=== PATIENT | female | born 1965 | race American Indian/Alaskan Native ===

== ENCOUNTER 2016-05-28 18:42 | Emergency (ER) | payer SELFPAY ==
[2016-05-28 19:02] VITALS: BP 133/95
[2016-05-28] MEDS ORDERED: NACL 0.9% 1000 ML 1,000 ML IV ONE (19:06)
[2016-05-28] MEDS ORDERED: ZOFRAN IV ONE (19:06)
[2016-05-28] MEDS ORDERED: XYLOCAINE 1% MPF 5 mL INFILTRATI ONE (19:09)
[2016-05-28] MEDS ORDERED: ROCEPHIN IV ONE (19:09)
--- NOTE | 2016-05-28 19:11 | Emergency Department Report ---
ED N/V/D HPI - General Chief complaint: Nausea/Vomiting/Diarrhea Stated complaint: COUGH/DIARRHEA/NOT EATING Source: patient Mode of arrival: Ambulatory Limitations: No Limitations - History of Present Illness MD complaint: nausea, vomiting, diarrhea Location: diffuse - Related Data Allergies Allergy/AdvReac Type Severity Reaction Status Date / Time No Known Allergies Allergy Unverified 05/28/16 18:57 ED Review of Systems ROS: Stated complaint: COUGH/DIARRHEA/NOT EATING Other details as noted in HPI ED Past Medical Hx - Past Medical History Previous Medical History?: Yes Hx Psychiatric Treatment: Yes (Bipolar) Hx HIV: Yes Additional medical history: Multiple myeloma - Surgical History Past Surgical History?: Yes Additional Surgical History: tubaligation - Social History Smoking Status: Former Smoker Substance Use Type: Prescribed ED Physical Exam - General Limitations: No Limitations ED Course Vital Signs 05/28/16 18:58 Temperature 98.8 F Pulse Rate 120 H Respiratory 24 Rate Blood Pressure 133/95 O2 Sat by Pulse 95 Oximetry Critical care attestation.: If time is entered above; I have spent that time in minutes in the direct care of this critically ill patient, excluding procedure time. ED Disposition Condition: Stable
--- NOTE | 2016-05-28 19:13 | Emergency Department Report ---
Chief Complaint: Nausea/Vomiting/Diarrhea Stated Complaint: COUGH/DIARRHEA/NOT EATING - HPI History of Present Illness: Plan nausea vomiting diarrhea and diffuse abdominal cramping for several days. Patient states she is unable to take her HIV meds due to this. - ROS Review of Systems: Patient awake alert and oriented afebrile nontoxic appearance tachycardic heart rate 120. - Exam Vital Signs: Vital Signs 05/28/16 18:58 Temperature 98.8 F Pulse Rate 120 H Respiratory 24 Rate Blood Pressure 133/95 O2 Sat by Pulse 95 Oximetry MSE screening note: Focused history and physical exam performed. Due to findings the following was ordered: ED Disposition for MSE Condition: Stable
[2016-05-28 20:04] LABS: Basophils % (Auto) 0.3 % (0.0-1.8); Eosinophils % (Auto) 0.1 % (0.0-4.3); Hematocrit 46.6 % (30.3-42.9); Hemoglobin 15.5 gm/dl (10.1-14.3); Mean Corpuscular HGB Conc 33 % (30-34); Mean Corpuscular Hemoglobin 33 pg (28-32); Mean Corpuscular Volume 99 fl (79-97); Platelet Count 131 K/mm3 (140-440); Red Blood Count 4.69 M/mm3 (3.65-5.03); Red Cell Distribution Width 14.3 % (13.2-15.2); White Blood Count 15.3 K/mm3 (4.5-11.0)
[2016-05-28 20:22] LABS: Alanine Aminotransferase 27 units/L (7-56); Albumin 4.2 g/dL (3.9-5); Albumin/Globulin Ratio 1.1 %; Alkaline Phosphatase 141 units/L (35-129); Anion Gap 19 mmol/L; Bilirubin,Total 0.5 mg/dL (0.1-1.2); Blood Urea Nitrogen 20 mg/dL (7-17); Calcium 9.1 mg/dL (8.4-10.2); Carbon Dioxide 24 mmol/L (22-30); Glucose 124 mg/dL (65-100); Lipase 41 units/L (13-60); Potassium 3.6 mmol/L (3.6-5.0); Sodium 137 mmol/L (137-145); Total Protein 8.1 g/dL (6.3-8.2)
--- NOTE | 2016-05-29 09:04 | XRay Report ---
CHEST 2 VIEWS INDICATION: Weakness. Chest pain and shortness of breath for 2-3 days. Patient states being diagnosed with multiple myeloma last year. COMPARISON: None similar at this institution. FINDINGS: PA and lateral chest radiographs demonstrate normal cardiomediastinal silhouette, mild aortic knob calcifications and well-expanded lungs. No significant pleural effusions or CHF. However, vague right mid to lower lung infiltrates may measure up to approximately 4.3 cm in size. A nonspecific 1 cm faint nodular density also projects about the left lateral costophrenic angle on the frontal view, not reliably localized on the lateral projection. Unremarkable bones. CONCLUSION: Subtle right mid to lower lung pneumonia and a vague 1 cm extreme left lung base nodular density that may be further evaluated on comparison with prior relevant imaging if available or further with chest CT, as warranted. Thank you for the opportunity to participate in this patient's care.
--- NOTE | 2016-06-01 01:29 | ED Elopement Review ---
ED Pt Elopement review - Results review Lab results: Laboratory Tests 05/28/16 05/28/16 05/28/16 19:35 19:35 19:35 WBC 15.3 H RBC 4.69 Hgb 15.5 H Hct 46.6 H MCV 99 H MCH 33 H MCHC 33 RDW 14.3 Plt Count 131 L Lymph % (Auto) 18.1 [place] % (Auto) 6.2 Eos % (Auto) 0.1 Baso % (Auto) 0.3 Lymph # 2.8 [place] # 0.9 H Eos # 0.0 Baso # 0.0 Seg Neutrophils % 75.3 H Seg Neutrophils # 11.5 H Sodium 137 Potassium 3.6 Chloride 98.0 Carbon Dioxide 24 Anion Gap 19 BUN 20 H Creatinine 1.0 Estimated GFR > 60 BUN/Creatinine Ratio 20.00 Glucose 124 H Lactic Acid 1.9 Calcium 9.1 Total Bilirubin 0.5 AST 32 ALT 27 Alkaline Phosphatase 141 H Total Protein 8.1 Albumin 4.2 Albumin/Globulin Ratio 1.1 Lipase 41 - Call Back decision Pt Call Back Decision: Call pt to return to ED [facility] (tachycardia, leukocytosis and subtle right lung pneumonia seen on chest x-ray should be addressed)
== END 2016-05-29 03:48 | disposition left against medical advice (07) ==
LOC: ED 18:42
DX: R19.7 Diarrhea, unspecified (principal); R10.84 Generalized abdominal pain; R11.2 Nausea with vomiting, unspecified; Z53.21 Procedure and treatment not carried out due to patient leaving prior to being seen by health care provider
CPT/HCPCS: 36415; 71020; 80053; 82140; 83690; 85025; 87040

== ENCOUNTER 2017-01-24 16:11 | Inpatient (IN) | payer OTHER ==
[2017-01-24] MEDS ORDERED: NACL 0.9% 500 ML 500 ML IV ONE (16:26)
[2017-01-24] MEDS ORDERED: ZOSYN/NS 4.5GM/100ML 4.5 GM/100 ML VIAL IV ONE (16:49)
[2017-01-24] MEDS ORDERED: NACL 0.9% 1000 ML 1,000 ML IV ONE ×3 (16:49→17:37)
[2017-01-24] MEDS ORDERED: TYLENOL PO ONE (16:49)
--- NOTE | 2017-01-24 16:54 | Emergency Department Report ---
ED General Adult HPI - General Chief complaint: Nausea/Vomiting/Diarrhea Stated complaint: N&V Time Seen by Provider: 01/24/17 16:44 Source: patient Mode of arrival: Ambulatory Limitations: No Limitations - History of Present Illness Initial comments: Patient is 51 years old female history of HIV, multiple myeloma on chemotherapy , presented with fever cough productive nausea and vomiting for the last 4 days patient looks very dry. Patient denied diarrhea. No chest pain or shortness of breath. No other symptoms at this moment. -: Gradual - Related Data Allergies Allergy/AdvReac Type Severity Reaction Status Date / Time No Known Allergies Allergy Verified 01/24/17 16:47 ED Review of Systems ROS: Stated complaint: N&V Other details as noted in HPI Comment: All other systems reviewed and negative Constitutional: no symptoms reported, chills, fever Respiratory: cough Cardiovascular: palpitations. denies: chest pain Gastrointestinal: nausea, vomiting. denies: hematemesis, melena, hematochezia Genitourinary: denies: urgency, dysuria, frequency, hematuria Neurological: weakness (generalized). denies: headache, numbness, paresthesias , confusion, abnormal gait ED Past Medical Hx - Past Medical History Previous Medical History?: Yes Hx Psychiatric Treatment: Yes (Bipolar) Hx HIV: Yes Additional medical history: Multiple myeloma - Surgical History Additional Surgical History: tubaligation - Social History Smoking Status: Current Every Day Smoker Substance Use Type: None ED Physical Exam - General Limitations: No Limitations General appearance: alert, in no apparent distress - Head Head exam: Present: atraumatic, normocephalic - Eye Eye exam: Present: normal appearance - ENT ENT exam: Present: mucous membranes dry - Neck Neck exam: Present: normal inspection, full ROM. Absent: tenderness, meningismus, lymphadenopathy, thyromegaly - Respiratory Respiratory exam: Present: rales, decreased breath sounds. Absent: respiratory distress, wheezes, rhonchi, stridor, prolonged expiratory - Cardiovascular Cardiovascular Exam: Present: tachycardia - GI/Abdominal GI/Abdominal exam: Present: soft, normal bowel sounds. Absent: tenderness, guarding, rebound, rigid, organomegaly, mass, bruit, pulsatile mass, hernia - Extremities Exam Extremities exam: Present: normal inspection, full ROM, normal capillary refill. Absent: tenderness, pedal edema, calf tenderness - Back Exam Back exam: Present: normal inspection. Absent: CVA tenderness (R), CVA tenderness (L) - Neurological Exam Neurological exam: Present: alert, oriented X3, CN II-XII intact - Skin Skin exam: Present: warm, dry, intact ED Course Vital Signs 01/24/17 01/24/17 01/24/17 16:22 16:50 18:32 Temperature 103 F H 100.8 F H Pulse Rate 117 H 113 H Respiratory 24 21 18 Rate Blood Pressure 125/88 Blood Pressure 137/85 [Left] O2 Sat by Pulse 94 97 Oximetry 01/24/17 01/24/17 01/24/17 18:34 18:46 19:00 Temperature Pulse Rate 108 H 109 H 120 H Respiratory 16 22 28 H Rate Blood Pressure Blood Pressure [Left] O2 Sat by Pulse 99 98 99 Oximetry 01/24/17 01/24/17 01/24/17 19:34 19:46 20:00 Temperature Pulse Rate 111 H 112 H 99 H Respiratory 19 14 Rate Blood Pressure 127/79 139/98 Blood Pressure [Left] O2 Sat by Pulse 100 100 99 Oximetry 01/24/17 01/24/17 20:15 20:30 Temperature 99.6 F Pulse Rate 104 H Respiratory 14 Rate Blood Pressure Blood Pressure [Left] O2 Sat by Pulse 98 Oximetry - Reevaluation(s) Reevaluation #1: 01/24/17 17:30 Patient stated that she is feeling better after fluids. Reevaluation #2: 01/24/17 21:[address] Spencer from [facility], he stated that this patient does not have a graft versus host disease because she had her own stem cell and need to be admitted into the hospital that she is in now. ED Medical Decision Making - Lab Data Result diagrams: 01/24/17 16:39 01/24/17 16:39 - Radiology Data Radiology results: image reviewed interpreted by me: Possible bilateral lower lobe early infiltrate Critical care attestation.: If time is entered above; I have spent that time in minutes in the direct care of this critically ill patient, excluding procedure time. ED Disposition Clinical Impression: Sepsis, Pneumonia, Nausea and vomiting Disposition: OP ADMIT IP TO THIS HOSP Is pt being admited?: Yes Condition: Stable Instructions: Bacterial Pneumonia (ED) Referrals: PRIMARY CARE, [Primary Care Provider] - 3-5 Days
[2017-01-24 17:13] LABS: Basophils % (Auto) 0.2 % (0.0-1.8); Eosinophils % (Auto) 0.5 % (0.0-4.3); Hematocrit 39.6 % (30.3-42.9); Hemoglobin 13.3 gm/dl (10.1-14.3); Mean Corpuscular HGB Conc 34 % (30-34); Mean Corpuscular Hemoglobin 36 pg (28-32); Mean Corpuscular Volume 107 fl (79-97); Platelet Count 149 K/mm3 (140-440); Red Blood Count 3.72 M/mm3 (3.65-5.03); Red Cell Distribution Width 13.9 % (13.2-15.2); White Blood Count 11.1 K/mm3 (4.5-11.0)
[2017-01-24 17:17] LABS: Alanine Aminotransferase 11 units/L (7-56); Albumin/Globulin Ratio 1.3 %; Alkaline Phosphatase 112 units/L (35-129); Anion Gap 21 mmol/L; BUN/Creatinine Ratio 17; Blood Urea Nitrogen 12 mg/dL (7-17); Calcium 8.7 mg/dL (8.4-10.2); Carbon Dioxide 24 mmol/L (22-30); Chloride 98.1 mmol/L (98-107); Glucose 125 mg/dL (65-100); Potassium 3.7 mmol/L (3.6-5.0); Sodium 139 mmol/L (137-145)
[2017-01-24 17:21] LABS: INR 0.98 (0.87-1.13)
[2017-01-24] MEDS ORDERED: ZOFRAN IV ONE (17:21)
--- NOTE | 2017-01-24 17:38 | History and Physical Report ---
History of Present Illness Chief complaint: Im sick, and i need help History of present illness: 51 YO Female with Multiple Myeloma Noncompliant with chemotherapy, S/P Bone Marrow Transplant with medication noncompliance, HIV, Bipolar, Nicotine Dependence, Medication Noncompliance due to inability to afford her medication presents to ED for evaluation. Pt states that she has experienced multiple episodes of nausea and vomiting for the past 4 days which has resulted in decreased oral intake. Pt states that she had a bone marrow transplant in October , but has not seen her oncologist in the past 2 months. Pt states that she presented to office for appointments, but was not allowed to see the physician. Pt acknowledges noncompliance with her chemotherapy medication, but compliance with HIV medication. Pt denies CP, Palpitations, Syncope, BRBPR, Recent ill contacts, leg swelling, calf pain, shortness of breath, loose stools, Vision changes, or recent ill contacts. . Pt seen and evaluated in ED and found to have fever of 103; However, repeat evaluation showed a temperature of 100.8. Pt treated with empiric antibiotic therapy, IV fluid, anti emetic therapy. Pt counseled regarding medication noncompliance. Pt informed of poor prognosis and the need for medication compliance, and outpatient f/u with oncology. Pt informed of care plan. Pt states that she does not have money for her medication , and has several prescriptions at home that she cannot get filled because she does not have money for her medication. Pt states that "somebody should be able to help me get my medicine". Pt acknowledges understanding prognosis and instructions. Pt care discussed in detail with ED physician. ED physician instructed to transfer patient to transplant center. per ED sofie, [facility] notified, and patient was discussed with Oncology physician class a regional truck driver. Oncology physician class a regional truck driver was the patient's outpatient oncologist. The oncologist states that patient does not require transfer, and should be treated with IV abx. and the patient will receive F/U care in the office at discharge. Past History Past Medical History: cancer, HIV/AIDS, other (Nicotine Dependence) Past Surgical History: Other (Bone Marrow transplant) Social history: single, smoking. denies: alcohol abuse, prescription drug abuse Family history: no significant family history (reviewed) Medications and Allergies Allergies Allergy/AdvReac Type Severity Reaction Status Date / Time No Known Allergies Allergy Verified 01/24/17 16:47 Active Meds: Active Medications Sodium Chloride (Nacl 0.9% 1000 Ml) 1,000 mls @ 999 mls/hr IV BOLUS ONE Stop: 01/24/17 17:49 Sodium Chloride (Nacl 0.9% 1000 Ml) 1,000 mls @ 999 mls/hr IV BOLUS ONE Stop: 01/24/17 17:55 Sodium Chloride (Nacl 0.9% 1000 Ml) 1,000 mls @ 999 mls/hr IV BOLUS ONE Stop: 01/24/17 18:37 Review of Systems Constitutional: fever, weakness, malaise, other, no weight loss, no weight gain , no chills Breasts: no change in shape, no swelling, no mass Cardiovascular: no chest pain, no orthopnea, no palpitations, no rapid/ irregular heart beat, no edema, no syncope Respiratory: no cough, no cough with sputum, no excessive sputum, no hemoptysis , no shortness of breath, no dyspnea on exertion Gastrointestinal: nausea, vomiting Genitourinary Female: no pelvic pain, no flank pain, no menorrhagia Musculoskeletal: no neck stiffness, no neck pain, no shooting arm pain, no arm numbness/tingling, no low back pain, no shooting leg pain Integumentary: no rash, no pruritis, no redness, no sores, no wounds Neurological: no transient paralysis, no paralysis, no weakness, no parathesias , no numbness Psychiatric: no anxiety, no memory loss, no change in sleep habits, no sleep disturbances, no insomnia Endocrine: no cold intolerance, no heat intolerance, no polyphagia, no excessive thirst, no polydipsia Hematologic/Lymphatic: no easy bruising, no easy bleeding Allergic/Immunologic: no urticaria, no allergic rhinitis, no wheezing Exam - Constitutional Vitals: Temp Pulse Resp BP Pulse Ox 100.8 F H 113 H 21 137/85 97 01/24/17 16:50 01/24/17 16:50 01/24/17 16:50 01/24/17 16:50 01/24/17 16:50 General appearance: Present: mild distress, cachectic, disheveled - EENT Eyes: Present: PERRL ENT: hearing intact, clear oral mucosa - Neck Neck: Present: supple, normal ROM - Respiratory Respiratory effort: normal Respiratory: bilateral: CTA - Cardiovascular Rhythm: other (tachycardia) Heart Sounds: Present: S1 & S2. Absent: rub, click - Extremities Extremities: pulses symmetrical, No edema Peripheral Pulses: within normal limits - Abdominal General gastrointestinal: Present: soft, non-tender, non-distended, normal bowel sounds Female genitourinary: Present: normal - Integumentary Integumentary: Present: clear, dry, decreased turgor - Musculoskeletal Musculoskeletal: generalized weakness - Psychiatric Psychiatric: appropriate mood/affect, intact judgment & insight - Neurologic Neurologic: CNII-XII intact, moves all extremities Results - Labs CBC & Chem 7: 01/24/17 16:39 01/24/17 16:39 Labs: Abnormal lab results 01/24/17 01/24/17 01/24/17 Range/Units 16:39 16:39 16:39 WBC 11.1 H (4.5-11.0) K/mm3 MCV 107 H (79-97) fl MCH 36 H (28-32) pg [place] % (Auto) 7.9 H (0.0-7.3) % [place] # 0.9 H (0.0-0.8) K/mm3 Seg Neutrophils % 75.5 H (40.0-70.0) % Seg Neutrophils # 8.4 H (1.8-7.7) K/mm3 VBG pH 7.456 H (7.320-7.420) Glucose 125 H (65-100) mg/dL Assessment and Plan - Patient Problems (1) Sepsis Current Visit: Yes Status: Acute Qualifiers: Sepsis type: sepsis due to unspecified organism Qualified Code(s): A41.9 - Sepsis, unspecified organism Plan to address problem: Sepsis Protocol: IV abx, IVF resuscitation, blood cultures, serial lactic acid level, monitor uop q shift, CTA chest to evaluate for intrathoracic anomoly/PE. (2) Nausea and vomiting Current Visit: Yes Status: Acute Plan to address problem: Anti emetic therapy, supportive care. (3) Multiple myeloma Current Visit: Yes Status: Acute Plan to address problem: Pt noncompliant with medication. Pt counseled. Pt states that she has not been seen by her oncologist and has prescriptions at home for all her medication, but cannot afford her medication. (4) Complication of bone marrow transplant Current Visit: Yes Status: Acute Plan to address problem: Pt noncompliant with medication, Pt symptoms may be the result noncompliance. recommend outpatient f/u with oncology. Pt treated with empiric antibiotic therapy, IVF and supportive care. (5) DVT prophylaxis Current Visit: Yes Status: Acute
[2017-01-24] MEDS ORDERED: VANCOMYCIN/NS 1 GM/250 ML 1 GM/250 ML BAG IV ONE (17:39)
[2017-01-24 19:56] LABS: Bacteria,Urine 1+ /HPF (Negative); Bilirubin,Urine NEG (Negative); Blood,Urine NEG (Negative); Ketones,Urine NEG (Negative); Leukocyte Esterase,Urine NEG (Negative); Nitrite,Urine NEG (Negative); Protein,Urine <15 mg/dL mg/dL (Negative); Urobilinogen,Urine < 2.0 mg/dL (<2.0)
[2017-01-24] MEDS ORDERED: NACL 0.9% 1000 ML IV ONE (21:25)
[2017-01-24] MEDS ORDERED: MILK OF MAGNESIA PO PRN (21:25)
[2017-01-24] MEDS ORDERED: ZOFRAN IV PRN (21:25)
[2017-01-24] MEDS ORDERED: DULCOLAX PR PRN (21:25)
[2017-01-24] MEDS ORDERED: TYLENOL PO PRN (21:25)
[2017-01-24] MEDS: ZOSYN/NS 4.5GM/100ML 4.5 GM/100 ML VIAL IV SCH (22:55)
[2017-01-25] MEDS: ZOSYN/NS 4.5GM/100ML 4.5 GM/100 ML VIAL IV SCH ×3 (05:45→21:54)
[2017-01-25] MEDS: NACL 0.9% 1000 ML 1,000 ML IV SCH (05:49)
--- NOTE | 2017-01-25 08:26 | XRay Report ---
AP chest: Fever, nonspecific pulmonary symptoms. The lungs are hyperinflated. The interstitial pattern may be minimally increased but there is no focal findings and no pleural abnormality identified. The heart and mediastinal structures are unremarkable. No vascular congestion. No significant change compared to prior study in May 2016. Impression: Hyperinflation with no acute finding.
[2017-01-25] MEDS ORDERED: NACL ONE (09:02)
--- NOTE | 2017-01-25 09:53 | Cat Scan Report ---
CTA of the chest: Chest pain with positive d-dimer. There is good opacification of the pulmonary vessels, cardiac chambers, and thoracic aorta. No filling defects identified in these opacified vessels or cardiac chambers. Normal aortic contour and size. No mediastinal or significant hilar adenopathy identified. The central airways are patent. There bronchoalveolar opacities in the right and left upper lobes as well as in the right lower lobe. In the left lower lobe there is a large consolidation. The thyroid lobe is generally enlarged and inhomogeneous but no focal mass is identified. Images carried into the upper abdomen show no pathology. Impressions: 1. No pulmonary embolus identified. 2. Bilateral pulmonary opacities consistent with pneumonia.
[2017-01-25] MEDS ORDERED: NORCO 5/325 PO PRN (15:08)
--- NOTE | 2017-01-25 15:09 | Progress Note ---
Assessment and Plan Assessment and plan: Patient is a 51-year-old woman with history of HIV, tobacco dependency and multiple myeloma who presented with severe shortness of breath. CTA of the chest reported as no pulmonary embolism but bilateral pneumonia. Patient gives a history of sick contact with her grandkids -Bilateral aspiration pneumonia: Continue IV vancomycin with close monitoring and IV Zosyn, follow cultures -Sepsis pneumonia present on admission as evidenced by respiration 21, temperature 100.8 and heart rate 113 -HIV: Currently in in transition to another infectious disease physician, consult ID -Multiple myeloma: Continue to follow with her oncologist at [facility] -DVT prophylaxis: Subcutaneous heparin added -Tobacco dependency: Counseled stopping History Interval history: Patient was seen and examined. Follow-up on current diagnosis/shortness of breath which is still present. Overnight uneventful. Patient denies any chest pain, or severe headaches. Imaging, nursing note, chart, labs and old chart reviewed. Discussed with patient. The nausea and vomiting has resolved she only on clear liquids. Hospitalist Physical - Physical exam Narrative exam: GEN: Thin woman, NAD, AWAKE, ALERT, ORIENTATED 3 HEENT: NCAT, EOMI, PERRL, OP Clear NECK: supple, no adenopathy, no thyromegaly, no JVD CVS/HEART: RRR, NORMAL S1S2, NO JVD, pulses present bilaterally CHEST/LUNGS: Coarse breath sounds with crackles worse on the left base Symmetrical chest expansion, diminished air entry bilaterally GI/Abdomen: soft, NTND, good bowel sounds, no guarding or rebound /Bladder: no suprapubic tenderness, no CVA or paraspinal tenderness EXT/Skin: no c/c/e, no obvious rash MSK: FROM x 4 Neuro: CN 2-12 grossly intact, no new focal deficits Psych: calm - Constitutional Vitals: Temp Pulse Resp BP Pulse Ox 98.5 F 85 18 145/89 99 01/25/17 07:28 01/25/17 07:28 01/25/17 07:28 01/25/17 07:28 01/25/17 07:28 General appearance: Present: cachectic Results - Labs CBC & Chem 7: 01/24/17 16:39 01/24/17 16:39 Labs: Laboratory Last Values WBC 11.1 K/mm3 (4.5-11.0) H 01/24/17 16:39 RBC 3.72 M/mm3 (3.65-5.03) 01/24/17 16:39 Hgb 13.3 gm/dl (10.1-14.3) 01/24/17 16:39 Hct 39.6 % (30.3-42.9) 01/24/17 16:39 MCV 107 fl (79-97) H 01/24/17 16:39 MCH 36 pg (28-32) H 01/24/17 16:39 MCHC 34 % (30-34) 01/24/17 16:39 RDW 13.9 % (13.2-15.2) 01/24/17 16:39 Plt Count 149 K/mm3 (140-440) 01/24/17 16:39 Lymph % (Auto) 15.9 % (13.4-35.0) 01/24/17 16:39 Jay % (Auto) 7.9 % (0.0-7.3) H 01/24/17 16:39 Eos % (Auto) 0.5 % (0.0-4.3) 01/24/17 16:39 Baso % (Auto) 0.2 % (0.0-1.8) 01/24/17 16:39 Lymph # 1.8 K/mm3 (1.2-5.4) 01/24/17 16:39 Jay # 0.9 K/mm3 (0.0-0.8) H 01/24/17 16:39 Eos # 0.1 K/mm3 (0.0-0.4) 01/24/17 16:39 Baso # 0.0 K/mm3 (0.0-0.1) 01/24/17 16:39 Seg Neutrophils % 75.5 % (40.0-70.0) H 01/24/17 16:39 Seg Neutrophils # 8.4 K/mm3 (1.8-7.7) H 01/24/17 16:39 PT 13.5 Sec. (12.2-14.9) 01/24/17 16:39 INR 0.98 (0.87-1.13) 01/24/17 16:39 D-Dimer 766.3 ng/mlDDU (0-234) H 01/24/17 16:39 VBG pH 7.456 (7.320-7.420) H 01/24/17 16:39 Sodium 139 mmol/L (137-145) 01/24/17 16:39 Potassium 3.7 mmol/L (3.6-5.0) 01/24/17 16:39 Chloride 98.1 mmol/L (98-107) 01/24/17 16:39 Carbon Dioxide 24 mmol/L (22-30) 01/24/17 16:39 Anion Gap 21 mmol/L 01/24/17 16:39 BUN 12 mg/dL (7-17) 01/24/17 16:39 Creatinine 0.7 mg/dL (0.7-1.2) 01/24/17 16:39 Estimated GFR > 60 ml/min 01/24/17 16:39 BUN/Creatinine Ratio 17 % 01/24/17 16:39 Glucose 125 mg/dL (65-100) H 01/24/17 16:39 Lactic Acid 1.00 mmol/L (0.7-2.0) 01/25/17 04:50 Calcium 8.7 mg/dL (8.4-10.2) 01/24/17 16:39 Total Bilirubin 0.40 mg/dL (0.1-1.2) 01/24/17 16:39 AST 17 units/L (5-40) 01/24/17 16:39 ALT 11 units/L (7-56) 01/24/17 16:39 Alkaline Phosphatase 112 units/L (35-129) 01/24/17 16:39 Total Protein 7.0 g/dL (6.3-8.2) 01/24/17 16:39 Albumin 4.0 g/dL (3.9-5) 01/24/17 16:39 Albumin/Globulin Ratio 1.3 % 01/24/17 16:39 Urine Color Yellow (Yellow) 01/24/17 19:38 Urine Turbidity Clear (Clear) 01/24/17 19:38 Urine pH 7.0 (5.0-7.0) 01/24/17 19:38 Ur Specific [place] 1.012 (1.003-1.030) 01/24/17 19:38 Urine Protein <15 mg/dl mg/dL (Negative) 01/24/17 19:38 Urine Glucose (UA) Neg mg/dL (Negative) 01/24/17 19:38 Urine Ketones Neg mg/dL (Negative) 01/24/17 19:38 Urine Blood Neg (Negative) 01/24/17 19:38 Urine Nitrite Neg (Negative) 01/24/17 19:38 Urine Bilirubin Neg (Negative) 01/24/17 19:38 Urine Urobilinogen < 2.0 mg/dL (<2.0) 01/24/17 19:38 Ur Leukocyte Esterase Neg (Negative) 01/24/17 19:38 Urine WBC (Auto) 1.0 /HPF (0.0-6.0) 01/24/17 19:38 Urine RBC (Auto) 5.0 /HPF (0.0-6.0) 01/24/17 19:38 U Epithel Cells (Auto) 5.0 /HPF (0-13.0) 01/24/17 19:38 Urine Bacteria (Auto) 1+ /HPF (Negative) 01/24/17 19:38
[2017-01-25] MEDS ORDERED: REGLAN IV PRN (15:10)
[2017-01-25] MEDS: MORPHINE IV PRN ×2 (17:52→21:55)
[2017-01-25] MEDS: ROBITUSSIN PO PRN (21:53)
[2017-01-26] MEDS: ROBITUSSIN PO PRN ×3 (01:32→20:34)
[2017-01-26] MEDS: NACL 0.9% 1000 ML 1,000 ML IV SCH ×2 (04:12→20:33)
[2017-01-26] MEDS: ZOSYN/NS 4.5GM/100ML 4.5 GM/100 ML VIAL IV SCH (05:19)
[2017-01-26] MEDS ORDERED: ZOVIRAX PO SCH (10:00)
[2017-01-26] MEDS ORDERED: TRIUMEQ PO SCH (10:00)
[2017-01-26] MEDS: ZOVIRAX PO SCH (10:07)
[2017-01-26] MEDS: PROTONIX PO SCH (10:07)
--- NOTE | 2017-01-26 11:20 | Progress Note ---
Assessment and Plan Assessment and plan: Patient is a 51-year-old woman with history of HIV, tobacco dependency and multiple myeloma who presented with severe shortness of breath. CTA of the chest reported as no pulmonary embolism but bilateral pneumonia. Patient gives a history of sick contact with her grandkids -Bilateral aspiration pneumonia: Continue IV vancomycin with close monitoring and IV Zosyn, follow cultures -Sepsis pneumonia present on admission as evidenced by respiration 21, temperature 100.8 and heart rate 113: treat with abx -HIV: Currently in transition to another infectious disease physician, consult ID -Multiple myeloma: Continue to follow with her oncologist at [facility] -DVT prophylaxis: Subcutaneous heparin added -Tobacco dependency: Counseled stopping hopefully d/c in 1-2 days History Interval history: Patient was seen and examined. Follow-up on current diagnosis/shortness of breath which is still present. Overnight uneventful. Patient denies any chest pain, or severe headaches. Imaging, nursing note, chart, labs and old chart reviewed. Discussed with patient. The nausea and vomiting has resolved she only on clear liquids. Hospitalist Physical - Physical exam Narrative exam: GEN: Thin woman, NAD, AWAKE, ALERT, ORIENTATED 3 HEENT: NCAT, EOMI, PERRL, OP Clear NECK: supple, no adenopathy, no thyromegaly, no JVD CVS/HEART: RRR, NORMAL S1S2, NO JVD, pulses present bilaterally CHEST/LUNGS: Coarse breath sounds with crackles worse on the left base Symmetrical chest expansion, diminished air entry bilaterally GI/Abdomen: soft, NTND, good bowel sounds, no guarding or rebound /Bladder: no suprapubic tenderness, no CVA or paraspinal tenderness EXT/Skin: no c/c/e, no obvious rash MSK: FROM x 4 Neuro: CN 2-12 grossly intact, no new focal deficits Psych: calm - Constitutional Vitals: Temp Pulse Resp BP Pulse Ox 98.3 F 73 16 165/94 96 01/26/17 08:24 01/26/17 08:24 01/26/17 08:24 01/26/17 08:24 01/26/17 08:24 General appearance: Present: cachectic Results - Labs CBC & Chem 7: 01/24/17 16:39 01/24/17 16:39 Labs: Laboratory Last Values WBC 11.1 K/mm3 (4.5-11.0) H 01/24/17 16:39 RBC 3.72 M/mm3 (3.65-5.03) 01/24/17 16:39 Hgb 13.3 gm/dl (10.1-14.3) 01/24/17 16:39 Hct 39.6 % (30.3-42.9) 01/24/17 16:39 MCV 107 fl (79-97) H 01/24/17 16:39 MCH 36 pg (28-32) H 01/24/17 16:39 MCHC 34 % (30-34) 01/24/17 16:39 RDW 13.9 % (13.2-15.2) 01/24/17 16:39 Plt Count 149 K/mm3 (140-440) 01/24/17 16:39 Lymph % (Auto) 15.9 % (13.4-35.0) 01/24/17 16:39 [place] % (Auto) 7.9 % (0.0-7.3) H 01/24/17 16:39 Eos % (Auto) 0.5 % (0.0-4.3) 01/24/17 16:39 Baso % (Auto) 0.2 % (0.0-1.8) 01/24/17 16:39 Lymph # 1.8 K/mm3 (1.2-5.4) 01/24/17 16:39 [place] # 0.9 K/mm3 (0.0-0.8) H 01/24/17 16:39 Eos # 0.1 K/mm3 (0.0-0.4) 01/24/17 16:39 Baso # 0.0 K/mm3 (0.0-0.1) 01/24/17 16:39 Seg Neutrophils % 75.5 % (40.0-70.0) H 01/24/17 16:39 Seg Neutrophils # 8.4 K/mm3 (1.8-7.7) H 01/24/17 16:39 PT 13.5 Sec. (12.2-14.9) 01/24/17 16:39 INR 0.98 (0.87-1.13) 01/24/17 16:39 D-Dimer 766.3 ng/mlDDU (0-234) H 01/24/17 16:39 VBG pH 7.456 (7.320-7.420) H 01/24/17 16:39 Sodium 139 mmol/L (137-145) 01/24/17 16:39 Potassium 3.7 mmol/L (3.6-5.0) 01/24/17 16:39 Chloride 98.1 mmol/L (98-107) 01/24/17 16:39 Carbon Dioxide 24 mmol/L (22-30) 01/24/17 16:39 Anion Gap 21 mmol/L 01/24/17 16:39 BUN 12 mg/dL (7-17) 01/24/17 16:39 Creatinine 0.7 mg/dL (0.7-1.2) 01/24/17 16:39 Estimated GFR > 60 ml/min 01/24/17 16:39 BUN/Creatinine Ratio 17 % 01/24/17 16:39 Glucose 125 mg/dL (65-100) H 01/24/17 16:39 Lactic Acid 1.00 mmol/L (0.7-2.0) 01/25/17 04:50 Calcium 8.7 mg/dL (8.4-10.2) 01/24/17 16:39 Total Bilirubin 0.40 mg/dL (0.1-1.2) 01/24/17 16:39 AST 17 units/L (5-40) 01/24/17 16:39 ALT 11 units/L (7-56) 01/24/17 16:39 Alkaline Phosphatase 112 units/L (35-129) 01/24/17 16:39 Total Protein 7.0 g/dL (6.3-8.2) 01/24/17 16:39 Albumin 4.0 g/dL (3.9-5) 01/24/17 16:39 Albumin/Globulin Ratio 1.3 % 01/24/17 16:39 Urine Color Yellow (Yellow) 01/24/17 19:38 Urine Turbidity Clear (Clear) 01/24/17 19:38 Urine pH 7.0 (5.0-7.0) 01/24/17 19:38 Ur Specific [place] 1.012 (1.003-1.030) 01/24/17 19:38 Urine Protein <15 mg/dl mg/dL (Negative) 01/24/17 19:38 Urine Glucose (UA) Neg mg/dL (Negative) 01/24/17 19:38 Urine Ketones Neg mg/dL (Negative) 01/24/17 19:38 Urine Blood Neg (Negative) 01/24/17 19:38 Urine Nitrite Neg (Negative) 01/24/17 19:38 Urine Bilirubin Neg (Negative) 01/24/17 19:38 Urine Urobilinogen < 2.0 mg/dL (<2.0) 01/24/17 19:38 Ur Leukocyte Esterase Neg (Negative) 01/24/17 19:38 Urine WBC (Auto) 1.0 /HPF (0.0-6.0) 01/24/17 19:38 Urine RBC (Auto) 5.0 /HPF (0.0-6.0) 01/24/17 19:38 U Epithel Cells (Auto) 5.0 /HPF (0-13.0) 01/24/17 19:38 Urine Bacteria (Auto) 1+ /HPF (Negative) 01/24/17 19:38
--- NOTE | 2017-01-26 11:51 | Consultation ---
History of Present Illness - Reason for Consult Consult date: 01/26/17 sepsis Requesting physician: ADEOLA THORNE - History of Present Illness 51 years old female with history of HIV since 1990 currently on Triumeq, sees Dr Michaud and Multiple Myeloma S/P Bone Marrow Transplant in October 2015, Bipolar, Nicotine Dependence; admitted on 01/24 17 due to one-week history of sore throat, runny nose, cough with white sputum production and subjective fever. Patient reports she was exposed to her grandchildren who had a upper respiratory infection 2 weeks ago. She lost oncology follow-up due to lack of insurance. She was supposed to take further chemotherapy however she has not been able to afford this. She also reports nausea and vomiting. Denies chest pain. In the emergency room, her initial temperature was 103, heart rate 117, respirations 22, blood pressure 125/88. Initial white count 11.1. Hemoglobin 13.3. Platelets 149. Creatinine 0.7. Lactic acid 3.2. Urinalysis was negative. Chest x-ray showed hyperinflation without consolidations. CTA showed no PE with bilateral pulmonary opacities. Current Antimicrobials: Zosyn 01/24 Previous Antimicrobials: Microbiology: Blood cultures: 01/24 ngtd Urine cultures: 01/24 neg Respiratory cultures: Influenza 01/24 neg Past History Past Medical History: cancer, HIV/AIDS, other (Nicotine Dependence) Past Surgical History: Other (Bone Marrow transplant) Social history: single, smoking. denies: alcohol abuse, prescription drug abuse Family history: no significant family history (reviewed) Medications and Allergies Allergies Allergy/AdvReac Type Severity Reaction Status Date / Time No Known Allergies Allergy Verified 01/24/17 16:47 Home Medications Medication Instructions Recorded Confirmed Last Taken Type Abacavir/Dolutegravir/Lamivudi 1 tab PO DAILY 01/25/17 01/25/17 Unknown History [Triumeq Tablet] Acyclovir [Zovirax Tab] 800 mg PO DAILY 01/25/17 01/25/17 Unknown History Active Meds: Active Medications Acetaminophen (Tylenol) 650 mg PO Q4H PRN PRN Reason: Pain MILD(1-3)/Fever >100.5/LAM Acetaminophen/Hydrocodone Bitart ([place]ane 5/325) 1 each PO Q4H PRN PRN Reason: Pain, Moderate (4-6) Acyclovir (Zovirax) 800 mg PO DAILY [facility] Last Admin: 01/26/17 10:07 Dose: 800 mg Bisacodyl (Dulcolax) 10 mg [place] QDAY PRN PRN Reason: Constipation unrelieved by [facility] Guaifenesin (Robitussin) 200 mg PO Q4H PRN PRN Reason: Cough Last Admin: 01/26/17 01:32 Dose: 200 mg Heparin Sodium (Porcine) (Heparin) 5,000 unit SUB-Q Q8H [facility] Sodium Chloride (Nacl 0.9% 1000 Ml) 1,000 mls @ 100 mls/hr IV DIRECT [facility] Last Admin: 01/26/17 04:12 Dose: 100 mls/hr Piperacillin Sod/Tazobactam Sod (Zosyn/Ns 4.5gm/100ml) 4.5 gm in 100 mls @ 200 mls/hr IV Q8HR RICH PRN Reason: Protocol Last Admin: 01/26/17 05:19 Dose: 200 mls/hr Magnesium Hydroxide (Milk Of Magnesia) 30 ml PO Q4H PRN PRN Reason: Constipation Metoclopramide HCl (Reglan) 10 mg IV Q8H PRN PRN Reason: Nausea And Vomiting Miscellaneous Medication (Triumeq) 1 tab PO DAILY [facility] Morphine Sulfate (Morphine) 2 mg IV Q4H PRN PRN Reason: Pain , Severe (7-10) Last Admin: 01/25/17 21:55 Dose: 2 mg Ondansetron HCl (Zofran) 4 mg IV Q8H PRN PRN Reason: N/V unrelieved by Reglan Pantoprazole Sodium (Protonix) 40 mg PO QDAY [facility] Last Admin: 01/26/17 10:07 Dose: 40 mg Review of Systems All systems: negative (as per HPI rest neg) Physical Examination - Physical Exam Narrative exam: General appearance: Alert in NAD, conversant Eyes: anicteric sclerae, moist conjunctivae; no lid-lag; PERRLA HENT: Atraumatic; oropharynx clear with moist mucous membranes and no mucosal ulcerations/no oral thrush; normal hard and soft palate. Normal external ears. Neck: Trachea midline; supple, no thyromegaly or lymphadenopathy Lungs: scattered rhonchi CV: rrr Abdomen: Soft, non-tender; no masses or hepatosplenomegaly Extremities: No peripheral edema or extremity lymphadenopathy Skin: Normal temperature, turgor and texture; no rash, ulcers or subcutaneous nodules Psych: Appropriate affect, alert and oriented to person, place and time. Neuro: alert and oriented x 3. Moving all extermities Lines: No CVL / PICC - Constitutional Vitals: Vital Signs Temp Pulse Resp BP Pulse Ox 98.3 F 73 16 165/94 96 01/26/17 08:24 01/26/17 08:24 01/26/17 08:24 01/26/17 08:24 01/26/17 08:24 Temperature -Last 24 Hours Temperature 98.3 F Temperature 98.9 F Temperature 98.2 F Results - Labs CBC & Chem 7: 01/24/17 16:39 01/24/17 16:39 Assessment and Plan Assessment: 1) Sepsis: Present on admission, manifested by fever, tachycardia, leukocytosis , increased lactate. Etiology most likely bilateral pneumonia. 2) Bilateral pneumonia: CAP versus oportunistic less likely -Chest x-ray showed hyperinflation without consolidations. -CTA showed no PE with bilateral pulmonary opacities. 3) HIV: since 1990 currently on Triumeq sees Dr Michaud 4) MM: s/p Bone Marrow Transplant in October 2015 5) Bipolar 6) Nicotine Dependence Plan: -follow-up blood cultures, urine culture -obtain respiratory cultures, procalcitonin, C-reactive protein (CRP) -check Legionella urine antigen, Streptococcus pneumoniae urine antigen -check Aspergillus antigen, Cryptococcal serum antigen -request HIV clinic records -continue triumeq -stop zosyn -start ceftriaxone and azithromycin -monitor fever Thank you Dr Thorne for your consultation, will follow up with you. Margaret David MD Infectious Diseases Specialist [facility] ([facility]) M [phone] O [phone]
[2017-01-26] MEDS: MORPHINE IV PRN ×2 (12:37→20:34)
[2017-01-26] MEDS: HEPARIN SUB-Q SCH (15:14)
[2017-01-26] MEDS: cefTRIAXone 2 GM in NACL 0.9% 20 ML IV SCH (15:15)
[2017-01-26] MEDS: ZITHROMAX 500 MG in NACL 0.9% 250ML 250 ML IV SCH (15:15)
[2017-01-27] MEDS: HEPARIN SUB-Q SCH ×3 (00:49→15:02)
[2017-01-27] MEDS: NACL 0.9% 1000 ML 1,000 ML IV SCH (07:05)
--- NOTE | 2017-01-27 08:36 | Progress Note ---
Assessment and Plan Assessment and plan: Patient is a 51-year-old woman with history of HIV, tobacco dependency and multiple myeloma who presented with severe shortness of breath. CTA of the chest reported as no pulmonary embolism but bilateral pneumonia. Patient gives a history of sick contact with her grandkids -Bilateral aspiration pneumonia: Continue IV vancomycin with close monitoring and IV Zosyn, follow cultures -Sepsis pneumonia present on admission as evidenced by respiration 21, temperature 100.8 and heart rate 113: treat with abx -HIV: Currently in transition to another infectious disease physician, consult ID -Multiple myeloma: Continue to follow with her oncologist at [place] -DVT prophylaxis: Subcutaneous heparin added -Tobacco dependency: Counseled stopping hopefully d/c in 1-2 days History Interval history: Patient was seen and examined. Follow-up on current diagnosis/shortness of breath which is still present. Overnight uneventful. Patient denies any chest pain, or severe headaches. Imaging, nursing note, chart, labs and old chart reviewed. Discussed with patient. The nausea and vomiting has resolved she only on clear liquids. Hospitalist Physical - Physical exam Narrative exam: GEN: Thin woman, NAD, AWAKE, ALERT, ORIENTATED 3 HEENT: NCAT, EOMI, PERRL, OP Clear NECK: supple, no adenopathy, no thyromegaly, no JVD CVS/HEART: RRR, NORMAL S1S2, NO JVD, pulses present bilaterally CHEST/LUNGS: Coarse breath sounds with crackles worse on the left base Symmetrical chest expansion, diminished air entry bilaterally GI/Abdomen: soft, NTND, good bowel sounds, no guarding or rebound /Bladder: no suprapubic tenderness, no CVA or paraspinal tenderness EXT/Skin: no c/c/e, no obvious rash MSK: FROM x 4 Neuro: CN 2-12 grossly intact, no new focal deficits Psych: calm - Constitutional Vitals: Temp Pulse Resp BP Pulse Ox 98.5 F 71 18 138/83 98 01/26/17 23:26 01/26/17 23:26 01/26/17 23:26 01/26/17 23:26 01/26/17 23:26 General appearance: Present: cachectic Results - Labs CBC & Chem 7: 01/24/17 16:39 01/24/17 16:39 Labs: Laboratory Last Values WBC 11.1 K/mm3 (4.5-11.0) H 01/24/17 16:39 RBC 3.72 M/mm3 (3.65-5.03) 01/24/17 16:39 Hgb 13.3 gm/dl (10.1-14.3) 01/24/17 16:39 Hct 39.6 % (30.3-42.9) 01/24/17 16:39 MCV 107 fl (79-97) H 01/24/17 16:39 MCH 36 pg (28-32) H 01/24/17 16:39 MCHC 34 % (30-34) 01/24/17 16:39 RDW 13.9 % (13.2-15.2) 01/24/17 16:39 Plt Count 149 K/mm3 (140-440) 01/24/17 16:39 Lymph % (Auto) 15.9 % (13.4-35.0) 01/24/17 16:39 [place] % (Auto) 7.9 % (0.0-7.3) H 01/24/17 16:39 Eos % (Auto) 0.5 % (0.0-4.3) 01/24/17 16:39 Baso % (Auto) 0.2 % (0.0-1.8) 01/24/17 16:39 Lymph # 1.8 K/mm3 (1.2-5.4) 01/24/17 16:39 Price # 0.9 K/mm3 (0.0-0.8) H 01/24/17 16:39 Eos # 0.1 K/mm3 (0.0-0.4) 01/24/17 16:39 Baso # 0.0 K/mm3 (0.0-0.1) 01/24/17 16:39 Seg Neutrophils % 75.5 % (40.0-70.0) H 01/24/17 16:39 Seg Neutrophils # 8.4 K/mm3 (1.8-7.7) H 01/24/17 16:39 PT 13.5 Sec. (12.2-14.9) 01/24/17 16:39 INR 0.98 (0.87-1.13) 01/24/17 16:39 D-Dimer 766.3 ng/mlDDU (0-234) H 01/24/17 16:39 VBG pH 7.456 (7.320-7.420) H 01/24/17 16:39 Sodium 139 mmol/L (137-145) 01/24/17 16:39 Potassium 3.7 mmol/L (3.6-5.0) 01/24/17 16:39 Chloride 98.1 mmol/L (98-107) 01/24/17 16:39 Carbon Dioxide 24 mmol/L (22-30) 01/24/17 16:39 Anion Gap 21 mmol/L 01/24/17 16:39 BUN 12 mg/dL (7-17) 01/24/17 16:39 Creatinine 0.7 mg/dL (0.7-1.2) 01/24/17 16:39 Estimated GFR > 60 ml/min 01/24/17 16:39 BUN/Creatinine Ratio 17 % 01/24/17 16:39 Glucose 125 mg/dL (65-100) H 01/24/17 16:39 Lactic Acid 1.00 mmol/L (0.7-2.0) 01/25/17 04:50 Calcium 8.7 mg/dL (8.4-10.2) 01/24/17 16:39 Total Bilirubin 0.40 mg/dL (0.1-1.2) 01/24/17 16:39 AST 17 units/L (5-40) 01/24/17 16:39 ALT 11 units/L (7-56) 01/24/17 16:39 Alkaline Phosphatase 112 units/L (35-129) 01/24/17 16:39 C-Reactive Protein 15.60 mg/dL (0.00-1.30) H 01/26/17 13:45 Total Protein 7.0 g/dL (6.3-8.2) 01/24/17 16:39 Albumin 4.0 g/dL (3.9-5) 01/24/17 16:39 Albumin/Globulin Ratio 1.3 % 01/24/17 16:39 Urine Color Yellow (Yellow) 01/24/17 19:38 Urine Turbidity Clear (Clear) 01/24/17 19:38 Urine pH 7.0 (5.0-7.0) 01/24/17 19:38 Ur Specific [place] 1.012 (1.003-1.030) 01/24/17 19:38 Urine Protein <15 mg/dl mg/dL (Negative) 01/24/17 19:38 Urine Glucose (UA) Neg mg/dL (Negative) 01/24/17 19:38 Urine Ketones Neg mg/dL (Negative) 01/24/17 19:38 Urine Blood Neg (Negative) 01/24/17 19:38 Urine Nitrite Neg (Negative) 01/24/17 19:38 Urine Bilirubin Neg (Negative) 01/24/17 19:38 Urine Urobilinogen < 2.0 mg/dL (<2.0) 01/24/17 19:38 Ur Leukocyte Esterase Neg (Negative) 01/24/17 19:38 Urine WBC (Auto) 1.0 /HPF (0.0-6.0) 01/24/17 19:38 Urine RBC (Auto) 5.0 /HPF (0.0-6.0) 01/24/17 19:38 U Epithel Cells (Auto) 5.0 /HPF (0-13.0) 01/24/17 19:38 Urine Bacteria (Auto) 1+ /HPF (Negative) 01/24/17 19:38
[2017-01-27] MEDS: MORPHINE IV PRN (09:52)
[2017-01-27] MEDS: ZOVIRAX PO SCH (09:53)
[2017-01-27] MEDS: PROTONIX PO SCH (09:53)
[2017-01-27] MEDS: ROBITUSSIN PO PRN (09:53)
[2017-01-27] MEDS ORDERED: ROCEPHIN/NS 2 GM/100 ML 2 GM/100 ML BAG IV SCH (10:00)
[2017-01-27] MEDS: ZITHROMAX 500 MG in NACL 0.9% 250ML 250 ML IV SCH (13:42)
[2017-01-27] MEDS: cefTRIAXone 2 GM in NACL 0.9% 20 ML IV SCH (14:00)
--- NOTE | 2017-01-27 16:24 | Progress Note ---
Assessment and Plan Assessment: 1) Sepsis: resolved. Etiology most likely bilateral pneumonia. CRP=15. 2) Bilateral pneumonia: likely CAP versus opportunistic less likely -Chest x-ray showed hyperinflation without consolidations. -CTA showed no PE with bilateral pulmonary opacities. 3) HIV: since 1990 currently on Triumeq sees Dr Michaud 4) MM: s/p Bone Marrow Transplant in October 2015 5) Bipolar 6) Nicotine Dependence Plan: -follow-up respiratory cultures, procalcitonin, Legionella urine antigen, Streptococcus pneumoniae urine antigen -continue triumeq -continue ceftriaxone and azithromycin -monitor fever -if continues to improve, ok to d/c home on levaquin 750 mg po qday for total 7 days from 01/24-01/30 and HIV clinic f/u in 1 week I am signing off Thank you Dr Arcos for your consultation, will follow up with you. Margaret David MD Infectious Diseases Specialist [facility] ([facility]) M [phone] O [phone] Subjective Date of service: 01/27/17 Principal diagnosis: pneumonia/HIV Interval history: Feels better, no fever. cough is better. Current Antimicrobials: Zosyn 01/24 Previous Antimicrobials: Microbiology: Blood cultures: 01/24 ngtd Urine cultures: 01/24 neg Respiratory cultures: Influenza 01/24 neg Objective - Exam Narrative Exam: General appearance: Alert in NAD, conversant Eyes: anicteric sclerae, moist conjunctivae; no lid-lag; PERRLA HENT: Atraumatic; oropharynx clear Neck: Trachea midline; supple, no thyromegaly or lymphadenopathy Lungs: CTA danelle CV: rrr Abdomen: Soft, non-tender; no masses or hepatosplenomegaly Extremities: No peripheral edema or extremity lymphadenopathy Skin: Normal temperature, turgor and texture; no rash, ulcers or subcutaneous nodules Psych: Appropriate affect, alert and oriented to person, place and time. Neuro: alert and oriented x 3. Moving all extermities Lines: No CVL / PICC - Constitutional Vitals: Vital Signs Temp Pulse Resp BP Pulse Ox 97.4 F L 64 18 154/87 100 01/27/17 12:10 01/27/17 12:10 01/27/17 12:10 01/27/17 12:10 01/27/17 12:10 Temperature -Last 24 Hours Temperature 97.4 F Temperature 97.9 F Temperature 98.5 F Temperature 98.7 F - Labs CBC & Chem 7: 01/24/17 16:39 01/24/17 16:39 Labs: Abnormal lab results 01/26/17 Range/Units 13:45 C-Reactive Protein 15.60 H (0.00-1.30) mg/dL
[2017-01-28] MEDS: HEPARIN SUB-Q SCH ×2 (00:04→08:25)
[2017-01-28] MEDS: ROBITUSSIN PO PRN (00:13)
[2017-01-28 08:23] VITALS: BP 174/97
[2017-01-28] MEDS: MORPHINE IV PRN (08:24)
[2017-01-28] MEDS: PROTONIX PO SCH (09:36)
[2017-01-28] MEDS: ZOVIRAX PO SCH (09:40)
[2017-01-28] MEDS ORDERED: ZITHROMAX PO SCH (10:00)
--- NOTE | 2017-01-28 11:16 | Discharge Summary ---
Providers - Providers Date of Admission: 01/24/17 21:45 Date of discharge: 01/28/17 Attending physician: ADEOLA THORNE 01/25/17 15:09 Consult to Physician [CONS] Routine Consulting Provider: CARMEN VALENTIN Reason For Exam: HIV Place consult to:: DR. VICENTE Notified:: DR. VICENTE Phone number called:: [phone] Was contact made?: Yes If yes, spoke with:: DR. VICENTE Time called:: 16:22 Comment:: HARRISON NOTIFIED Primary care physician: APPLICATIONS PROGRAMMER Hospitalization Condition: Stable Hospital course: Assessment and plan: Patient is a 51-year-old woman with history of HIV, tobacco dependency and multiple myeloma who presented with severe shortness of breath. CTA of the chest reported as no pulmonary embolism but bilateral pneumonia. Patient gives a history of sick contact with her grandkids -Bilateral aspiration pneumonia: Continue IV vancomycin with close monitoring and IV Zosyn, follow cultures -Sepsis pneumonia present on admission as evidenced by respiration 21, temperature 100.8 and heart rate 113: treat with abx -HIV: Currently in transition to another infectious disease physician, consult ID -Multiple myeloma: Continue to follow with her oncologist at [place] -DVT prophylaxis: Subcutaneous heparin added -Tobacco dependency: Counseled stopping Disposition: DC-01 TO HOME OR SELFCARE Time spent for discharge: 34 minutes Core Measure Documentation - Palliative Care Palliative Care/ Comfort Measures: Not Applicable - Core Measures Any of the following diagnoses?: none - VTE Discharge Requirements Deep Vein Thrombosis/Pulmonary Embolism Present on Admission: No Has pt received <5 days of overlap therapy or INR<2.0: No Anticoagulant overlap therapy prescribed at discharge: No Contraindication No Overlap Therapy order at DC: Not Indicated Exam - Physical Exam Narrative exam: GEN: Thin woman, NAD, AWAKE, ALERT, ORIENTATED 3 HEENT: NCAT, EOMI, PERRL, OP Clear NECK: supple, no adenopathy, no thyromegaly, no JVD CVS/HEART: RRR, NORMAL S1S2, NO JVD, pulses present bilaterally CHEST/LUNGS: Coarse breath sounds with crackles worse on the left base Symmetrical chest expansion, diminished air entry bilaterally GI/Abdomen: soft, NTND, good bowel sounds, no guarding or rebound /Bladder: no suprapubic tenderness, no CVA or paraspinal tenderness EXT/Skin: no c/c/e, no obvious rash MSK: FROM x 4 Neuro: CN 2-12 grossly intact, no new focal deficits Psych: calm - Constitutional Vitals: Temp Pulse Resp BP Pulse Ox 98.5 F 61 16 174/97 99 01/28/17 07:25 01/28/17 07:25 01/28/17 07:25 01/28/17 07:25 01/28/17 07:25 Plan Activity: other (no strenous activity until cleared by pcp) Diet: regular Durable Medical Equipment Needed Upon Discharge: Nebulizer Follow up with: PRIMARY CARE, [Primary Care Provider] - 3-5 Days Prescriptions: Levofloxacin [Levaquin] 750 mg PO QDAY #7 day
[2017-01-28] MEDS ORDERED: PNEUMOVAX 23 IM ONE (14:30)
== END 2017-01-28 14:26 | disposition home or self-care (01) | DRG 974 ==
LOC: ED 16:11 → 3A 21:45
PROVIDERS: ADMIT Internal Medicine; ATTEND Internal Medicine
PROC: 3E0234Z Introduction of Serum, Toxoid and Vaccine into Muscle, Percutaneous Approach (ICD-10-PCS; principal; 2017-01-28)
DX: A41.9 Sepsis, unspecified organism (principal); B20 Human immunodeficiency virus [HIV] disease; J69.0 Pneumonitis due to inhalation of food and vomit; C90.00 Multiple myeloma not having achieved remission; Z94.81 Bone marrow transplant status; F17.200 Nicotine dependence, unspecified, uncomplicated; F31.9 Bipolar disorder, unspecified; Z71.6 Tobacco abuse counseling; Z98.51 Tubal ligation status; Z23 Encounter for immunization
CPT/HCPCS: 36415; 71010; 71275; 80053; 81001; 82140; 82805; 85025; 85379; 85610; 86140; 87040; 87086; 87400; 90732; 93005; 93010; 96365; 96366; 96367; 96375; 99285; J0456; J0696; J1644; J2270; J2405; J2543; J3370; J7030; J7050; Q9967